=== PATIENT | female | born 1985 | race African-American/Black ===

== ENCOUNTER 2022-01-31 14:53 | Emergency (ER) | payer MEDICAID, OTHER ==
[~2022-01-31] VITALS: Ht 154.9 cm; Wt 68.0 kg
[2022-01-31 14:55] VITALS: BP 110/58
== END 2022-01-31 23:13 | disposition left against medical advice (07) ==
LOC: ER 14:53
DX: M79.604 Pain in right leg (principal); R51.9 Headache, unspecified; Z53.21 Procedure and treatment not carried out due to patient leaving prior to being seen by health care provider; V89.2XXA Person injured in unspecified motor-vehicle accident, traffic, initial encounter; Y93.89 Activity, other specified; Y92.89 Other specified places as the place of occurrence of the external cause; Y99.8 Other external cause status